=== PATIENT | male | born 1990 | race Caucasian/White ===

== ENCOUNTER 2016-06-25 10:08 | Emergency (ER) | payer BC ==
--- NOTE | 2016-06-25 10:25 | ED ---
General Adult HPI - General Chief complaint: Upper Respiratory Infection Stated complaint: CHEST CONGESTION, COUGHING, SORE THROAT Time Seen by Provider: 06/25/16 10:24 Source: patient, RN notes reviewed, old records reviewed Mode of arrival: ambulatory Limitations: no limitations - History of Present Illness Initial comments: This is a 26-year-old male here for evaluation. This patient presents for evaluation of sore throat cough congestion. Sick contacts include roommate. No significant travel history no significant medical history. Patient takes no medications, nonsmoker. Patient's symptoms are 2 days, but sore throat just started today. Patient states she was feeling weak at the end of last week and symptoms of carried into the weekend. No chest pain nausea vomiting shortness of breath or diarrhea. - Related Data Previous Rx's Medication Instructions Recorded Amoxicillin 500 mg PO Q8H #30 capsule 06/25/16 Benzonatate [Tessalon Perles] 100 mg PO TID PRN #30 cap 06/25/16 Cetirizine HCl/Pseudoephedrine 1 each PO DAILY #20 tab.er.12h 06/25/16 [Zyrtec-D Tablet] Allergies Allergy/AdvReac Type Severity Reaction Status Date / Time No Known Allergies Allergy Verified 06/25/16 10:22 Review of Systems ROS Statement: Those systems with pertinent positive or pertinent negative responses have been documented in the HPI. ROS Other: All systems not noted in ROS Statement are negative. Past Medical History Past Medical History: No Reported History History of Any Multi-Drug Resistant Organisms: None Reported Past Surgical History: Orthopedic Surgery Additional Past Surgical History / Comment(s): right hand Past Psychological History: No Psychological Hx Reported Smoking Status: Never smoker Past Alcohol Use History: Occasional Past Drug Use History: None Reported General Exam Limitations: no limitations General appearance: alert, in no apparent distress Head exam: Present: atraumatic, normocephalic, normal inspection Eye exam: Present: normal appearance, PERRL, EOMI. Absent: scleral icterus, conjunctival injection, periorbital swelling ENT exam: Present: other (Bilateral tonsillar erythema and edema and exudate) Neck exam: Present: normal inspection. Absent: tenderness, meningismus, lymphadenopathy Respiratory exam: Present: normal lung sounds bilaterally. Absent: respiratory distress, wheezes, rales, rhonchi, stridor Cardiovascular Exam: Present: regular rate, normal rhythm, normal heart sounds. Absent: systolic murmur, diastolic murmur, rubs, gallop, clicks GI/Abdominal exam: Present: soft, normal bowel sounds. Absent: distended, tenderness, guarding, rebound, rigid Extremities exam: Present: normal inspection, full ROM, normal capillary refill. Absent: tenderness, pedal edema, joint swelling, calf tenderness Back exam: Present: normal inspection Neurological exam: Present: alert, oriented X3, CN II-XII intact Psychiatric exam: Present: normal affect, normal mood Skin exam: Present: warm, dry, intact, normal color. Absent: rash Course Vital Signs 06/25/16 10:19 Temperature 98.1 F Pulse Rate 88 Respiratory 16 Rate Blood Pressure 122/79 O2 Sat by Pulse 98 Oximetry - Reevaluation(s) Reevaluation #1: 06/25/16 11:11 Patient no acute distress Medical Decision Making - Medical Decision Making 26 LDR for evaluation of cough congestion sore throat. Patient does have pharyngitis on exam, x-ray negative for pneumonia. Patient can be discharged home - Radiology Data Radiology results: report reviewed (Chest x-ray two-view Negative for acute disease), image reviewed Disposition Clinical Impression: Upper respiratory infection, Pharyngitis, Strep pharyngitis Disposition: HOME SELF-CARE Condition: Good Instructions: Upper Respiratory Infection (ED), Pharyngitis (ED) Referrals: None,Stated [Primary Care Provider] - 1-2 days
--- NOTE | 2016-06-25 11:33 | XR ---
EXAMINATION TYPE: XR chest 2V DATE OF EXAM: 06/25/2016 11:17 AM COMPARISON: NONE HISTORY: Cough and congestion. TECHNIQUE: Frontal and lateral views of the chest are obtained. FINDINGS: There is no focal air space opacity, pleural effusion, or pneumothorax seen. The cardiac silhouette size is within normal limits. The osseous structures are intact. IMPRESSION: No acute cardiopulmonary process.
[2016-06-25 11:39] VITALS: BP 119/80; PULSE 85; RESP 18; TEMP 97.3
== END 2016-06-25 11:38 | disposition home or self-care (01) ==
LOC: EC 10:08
DX: J02.0 Streptococcal pharyngitis (principal)
CPT/HCPCS: 71020; 99284

== ENCOUNTER 2016-07-27 11:36 | Emergency (ER) | payer BC ==
[2016-07-27] MEDS ORDERED: SODIUM CHLORIDE 0.9% 1,000 ML IV STA (13:04)
[2016-07-27] MEDS ORDERED: ONDANSETRON 4 MG/2 ML VIAL IVP STA (13:04)
[2016-07-27] MEDS ORDERED: ACETAMINOPHEN IV (For NPO) 1,000 MG in EMPTY BAG 1 BAG IVPB STA (13:13)
--- NOTE | 2016-07-27 13:14 | ED ---
Nausea/Vomiting/Diarrhea HPI - General Chief complaint: Nausea/Vomiting/Diarrhea Stated complaint: vomiting, diarrhea Time Seen by Provider: 07/27/16 13:04 Source: patient, RN notes reviewed Mode of arrival: ambulatory Limitations: no limitations - History of Present Illness Initial comments: 26-year-old male presents emergency Department chief complaint nausea vomiting diarrhea. Patient states symptoms started around midnight. Patient states they finally was able to keep some fluids down states he still very nauseated. Patient had several bouts of diarrhea but states he has not had any evidence of melena or hematochezia. Patient denies any hematemesis or coffee-ground emesis. Patient denies eating out anywhere, no travel. No sick contacts with similar symptoms. Patient states he does feel achy but denies any cold-like symptoms including cough, chest congestion, runny nose sore throat. Patient states he has no specific pain states he just generally does not feel well. - Related Data Previous Rx's Medication Instructions Recorded Ondansetron Odt [Zofran Odt] 4 mg PO Q8HR PRN #10 tab 07/27/16 Allergies Allergy/AdvReac Type Severity Reaction Status Date / Time No Known Allergies Allergy Verified 07/27/16 13:16 Review of Systems ROS Statement: Those systems with pertinent positive or pertinent negative responses have been documented in the HPI. ROS Other: All systems not noted in ROS Statement are negative. Past Medical History Past Medical History: No Reported History History of Any Multi-Drug Resistant Organisms: None Reported Past Surgical History: Orthopedic Surgery Additional Past Surgical History / Comment(s): right hand Past Psychological History: No Psychological Hx Reported Smoking Status: Never smoker Past Alcohol Use History: Occasional Past Drug Use History: None Reported General Exam Limitations: no limitations General appearance: alert, in no apparent distress Head exam: Present: atraumatic, normocephalic, normal inspection Eye exam: Present: normal appearance, PERRL, EOMI. Absent: scleral icterus, conjunctival injection, periorbital swelling ENT exam: Present: mucous membranes moist Neck exam: Present: normal inspection, full ROM. Absent: tenderness, meningismus, lymphadenopathy Respiratory exam: Present: normal lung sounds bilaterally. Absent: respiratory distress, wheezes, rales, rhonchi, stridor Cardiovascular Exam: Present: normal rhythm, tachycardia, normal heart sounds. Absent: systolic murmur, diastolic murmur, rubs, gallop, clicks GI/Abdominal exam: Present: soft, tenderness (Mild diffuse), normal bowel sounds. Absent: distended, guarding, rebound, rigid Neurological exam: Present: alert, oriented X3, CN II-XII intact Skin exam: Present: warm, dry, intact, normal color. Absent: rash Course Vital Signs 07/27/16 11:39 Temperature 99.7 F H Pulse Rate 121 H Respiratory 18 Rate Blood Pressure 110/57 O2 Sat by Pulse 97 Oximetry Medical Decision Making - Medical Decision Making 26-year-old male presented for nausea vomiting diarrhea. Patient's lab work within normals. Patient also has gastroenteritis. Patient states she does feel 100% better and states that he is hungry at this time. Patient will be discharged with Zofran. Return parameters were discussed. - Lab Data Result diagrams: 07/27/16 13:32 07/27/16 13:32 Lab Results 07/27/16 07/27/16 07/27/16 Range/Units 13:32 13:32 14:10 WBC 11.6 H (3.8-10.6) k/uL RBC 4.98 (4.30-5.90) m/uL Hgb 16.1 (13.0-17.5) gm/dL Hct 47.6 (39.0-53.0) % MCV 95.6 (80.0-100.0) fL MCH 32.3 (25.0-35.0) pg MCHC 33.8 (31.0-37.0) g/dL RDW 13.1 (11.5-15.5) % Plt Count 255 (150-450) k/uL Neutrophils % 90 % Lymphocytes % 4 % Monocytes % 4 % Eosinophils % 0 % Basophils % 0 % Neutrophils # 10.5 H (1.3-7.7) k/uL Lymphocytes # 0.5 L (1.0-4.8) k/uL Monocytes # 0.5 (0-1.0) k/uL Eosinophils # 0.0 (0-0.7) k/uL Basophils # 0.0 (0-0.2) k/uL Sodium 140 (137-145) mmol/L Potassium 4.1 (3.5-5.1) mmol/L Chloride 101 (98-107) mmol/L Carbon Dioxide 25 (22-30) mmol/L Anion Gap 14 mmol/L BUN 15 (9-20) mg/dL Creatinine 0.84 (0.66-1.25) mg/dL Est GFR (MDRD) Af Amer >60 (>60 ml/min/1.73 sqM) Est GFR (MDRD) Non-Af >60 (>60 ml/min/1.73 sqM) Glucose 113 H (74-99) mg/dL Calcium 9.1 (8.4-10.2) mg/dL Total Bilirubin 1.7 H (0.2-1.3) mg/dL AST 30 (17-59) U/L ALT 59 (21-72) U/L Alkaline Phosphatase 51 (38-126) U/L Total Protein 7.1 (6.3-8.2) g/dL Albumin 4.4 (3.5-5.0) g/dL Amylase <30 L (30-110) U/L Lipase 29 (23-300) U/L Urine Color Yellow Urine Appearance Clear (Clear) Urine pH 6.0 (5.0-8.0) Ur Specific [place] 1.030 (1.001-1.035) Urine Protein Trace H (Negative) Urine Glucose (UA) Negative (Negative) Urine Ketones Negative (Negative) Urine Blood Negative (Negative) Urine Nitrate Negative (Negative) Urine Bilirubin Negative (Negative) Urine Urobilinogen <2.0 (<2.0) mg/dL Ur Leukocyte Esterase Negative (Negative) Disposition Clinical Impression: Gastroenteritis Disposition: HOME SELF-CARE Condition: Stable Instructions: Gastroenteritis (ED) Additional Instructions: Please return to the Emergency Department if symptoms worsen or any other concerns. Prescriptions: Ondansetron Odt [Zofran Odt] 4 mg PO Q8HR PRN #10 tab PRN Reason: Nausea Time of Disposition: 15:01
[2016-07-27 13:59] LABS: Basophils % (A) 0 %; CH 33.6; CHCM 35.4; Eosinophils % (A) 0 %; HCT 47.6 % (39.0-53.0); HDW 2.75; HGB 16.1 gm/dL (13.0-17.5); Luc # (Auto) 0.08; Luc % (Auto) 1; Lymphocytes # (A) 0.5 k/uL (1.0-4.8); Lymphocytes % (A) 4 %; MCH 32.3 pg (25.0-35.0); MCHC 33.8 g/dL (31.0-37.0); MCV 95.6 fL (80.0-100.0); Mean Platelet Volume 8.3; Monocytes # (A) 0.5 k/uL (0-1.0); Monocytes % (A) 4 %; Neutrophils # (A) 10.5 k/uL (1.3-7.7); Neutrophils % (A) 90 %; RBC 4.98 m/uL (4.30-5.90); RDW 13.1 % (11.5-15.5); WBC 11.6 k/uL (3.8-10.6); WBC (Perox) 11.47
[2016-07-27 14:13] LABS: ALT 59 U/L (21-72); AST 30 U/L (17-59); Alkaline Phosphatase 51 U/L (38-126); Amylase <30 U/L (30-110); Anion Gap 14 mmol/L; Blood Urea Nitrogen 15 mg/dL (9-20); Calcium 9.1 mg/dL (8.4-10.2); Carbon Dioxide 25 mmol/L (22-30); Chloride 101 mmol/L (98-107); Glucose 113 mg/dL (74-99); Non-African American GFR(MDRD) >60 (>60 ml/min/1.73 sqM); Potassium 4.1 mmol/L (3.5-5.1); Sodium 140 mmol/L (137-145); Total Bilirubin 1.7 mg/dL (0.2-1.3); Total Protein 7.1 g/dL (6.3-8.2)
[2016-07-27 14:33] LABS: Appearance,Urine Clear (Clear); Bilirubin,Urine Negative (Negative); Glucose,Urine (UA) Negative (Negative); Ketones,Urine Negative (Negative); Leukocyte Esterase,Urine Negative (Negative); Nitrite,Urine Negative (Negative); Protein,Urine Trace (Negative); UA Billing (MACRO vs. MICRO) CHEM; Urobilinogen,Urine <2.0 mg/dL (<2.0)
[2016-07-27 15:29] VITALS: BP 143/61; PULSE 93; RESP 20; TEMP 98.7
== END 2016-07-27 15:28 | disposition home or self-care (01) ==
LOC: EC 11:36
DX: K52.9 Noninfective gastroenteritis and colitis, unspecified (principal)
CPT/HCPCS: 36415; 80053; 82150; 83690; 85025; 81003; 99284; 96365; 96375; J2405; J0131

== ENCOUNTER 2016-11-18 21:31 | Emergency (ER) | payer BC ==
[2016-11-18 21:48] VITALS: BP 130/74; PULSE 95; RESP 16; TEMP 97.8
--- NOTE | 2016-11-18 22:09 | ED ---
ENT HPI - General Chief complaint: ENT Stated complaint: dental pain Time Seen by Provider: 11/18/16 22:08 Source: patient, RN notes reviewed Mode of arrival: ambulatory Limitations: no limitations - History of Present Illness Initial comments: This is a pleasant 26-year-old male presents [facility] complaining of right -sided dental pain which been going on for the past few days. Patient is a cigarette smoker. Patient has a history of poor dentition. No shortness breath or chest pain. No fever or chills. MD complaint: tooth pain Onset/Timin -: days(s) Location: other (Patient has multiple dental caries on both sides. Mild gingivitis) Associated Symptoms: toothache, other (No shortness breath or chest pain. No fever or chills. No neck stiffness. No rashes or lesions) - Related Data Home Medications Medication Instructions Recorded Confirmed Multivitamins, Thera [Multivitamin 1 tab PO DAILY 11/18/16 11/18/16 (formulary)] Previous Rx's Medication Instructions Recorded HYDROcodone/APAP 5-325MG [[place] 5] 1 each PO Q4HR PRN #12 tab 11/18/16 Naproxen [Naprosyn] 500 mg PO Q12HR #24 tab 11/18/16 Penicillin V Potassium [Pen Vee K] 500 mg PO QID #40 tab 11/18/16 Allergies Allergy/AdvReac Type Severity Reaction Status Date / Time No Known Allergies Allergy Verified 11/18/16 21:54 Review of Systems ROS Statement: Those systems with pertinent positive or pertinent negative responses have been documented in the HPI. ROS Other: All systems not noted in ROS Statement are negative. Past Medical History Past Medical History: No Reported History History of Any Multi-Drug Resistant Organisms: None Reported Past Surgical History: Orthopedic Surgery Additional Past Surgical History / Comment(s): right hand Past Psychological History: No Psychological Hx Reported Smoking Status: Current every day smoker Past Alcohol Use History: Occasional Past Drug Use History: None Reported General Exam - General Exam Comments Initial Comments: Well-developed, well-nourished 26-year-old male in no distress Limitations: no limitations General appearance: alert, in no apparent distress Head exam: Present: atraumatic, normocephalic, normal inspection Eye exam: Present: normal appearance, PERRL, EOMI. Absent: scleral icterus, conjunctival injection, periorbital swelling ENT exam: Present: normal exam, mucous membranes moist, TM's normal bilaterally , normal external ear exam, other (Patient has extensive dental carry formation with gingivitis and mild periodontal erythema on the right. No evidence of drainable abscess.) Neck exam: Present: normal inspection. Absent: tenderness, meningismus, lymphadenopathy Respiratory exam: Present: normal lung sounds bilaterally. Absent: respiratory distress, wheezes, rales, rhonchi, stridor Cardiovascular Exam: Present: regular rate, normal rhythm, normal heart sounds. Absent: systolic murmur, diastolic murmur, rubs, gallop, clicks GI/Abdominal exam: Present: soft, normal bowel sounds. Absent: distended, tenderness, guarding, rebound, rigid Extremities exam: Present: normal inspection, full ROM, normal capillary refill. Absent: tenderness, pedal edema, joint swelling, calf tenderness Back exam: Present: normal inspection Neurological exam: Present: alert, oriented X3, CN II-XII intact Psychiatric exam: Present: normal affect, normal mood Skin exam: Present: warm, dry, intact, normal color. Absent: rash Course Vital Signs 11/18/16 21:46 Temperature 97.8 F Pulse Rate 95 Respiratory 16 Rate Blood Pressure 130/74 O2 Sat by Pulse 98 Oximetry Medical Decision Making - Medical Decision Making Dental carry formation and dental pain. No evidence of drainable abscess. No tonsillitis. No peritonsillar abscess - Differential Diagnosis Dental pain, dental caries, dental abscess Disposition Clinical Impression: Dental caries, Pain due to dental caries Disposition: HOME SELF-CARE Condition: Good Instructions: Dental Caries (ED) Additional Instructions: Follow-up with the [facility] dental clinic at [address] [place] [address]. The phone number is [phone] (existing clients), ( new clients). The first consultation is $50 which includes x-rays. Usually costs 30% less than private dentist for subsequent visits. Return to the ER at once if the symptoms worsen or problems or difficulties arise. Prescriptions: HYDROcodone/APAP 5-325MG [[place] 5] 1 each PO Q4HR PRN #12 tab PRN Reason: Pain Naproxen [Naprosyn] 500 mg PO Q12HR #24 tab Penicillin V Potassium [Pen Vee K] 500 mg PO QID #40 tab Referrals: Ervin Patterson MD [STAFF PHYSICIAN] - 1-2 days Time of Disposition: 22:45
== END 2016-11-18 22:54 | disposition home or self-care (01) ==
LOC: EC 21:31
DX: K02.9 Dental caries, unspecified (principal); F17.210 Nicotine dependence, cigarettes, uncomplicated; Z79.899 Other long term (current) drug therapy
CPT/HCPCS: 99282

== ENCOUNTER 2020-09-03 15:27 | Emergency (ER) | payer BC, OTHER ==
[2020-09-03 16:27] VITALS: BP 139/95; PULSE 81; RESP 18; TEMP 98.6
[2020-09-03] MEDS ORDERED: ACET/COD 300 MG/30 MG STARTER PACK 6 TAB BTL PO STA (17:00)
[2020-09-03] MEDS ORDERED: KETOROLAC 15 MG/ML 1 ML VIAL IM STA (17:00)
--- NOTE | 2020-09-03 17:05 | ED ---
ENT HPI - General Chief complaint: Dental/Oral Stated complaint: tooth pain/facial swelling Time Seen by Provider: 09/03/20 16:35 Source: patient Mode of arrival: ambulatory Limitations: no limitations - History of Present Illness Initial comments: Patient is a 30-year-old male presenting to the emergency Department with complaints of right-sided upper jaw swelling and pain over the past few days. Patient states he noticed tooth pain over the last 4-5 days and in the facial swelling that started today. He denies any fever or chills, no nausea or v omiting. He states he has had this issue in the past. He currently does not have insurance and does not have a dentist. He has been trying ibuprofen and Tylenol home without improvement in his pain. Patient has no further complaints at this time. Upon arrival to the ER, his vital signs are stable. - Related Data Home Medications Medication Instructions Recorded Confirmed Multivitamins, Thera [Multivitamin 1 tab PO DAILY 11/18/16 11/18/16 (formulary)] Previous Rx's Medication Instructions Recorded HYDROcodone/APAP 5-325MG [[place] 5] 1 each PO Q4HR PRN #12 tab 11/18/16 Naproxen [Naprosyn] 500 mg PO Q12HR #24 tab 11/18/16 Penicillin V Potassium [Pen Vee K] 500 mg PO QID #40 tab 11/18/16 Penicillin V Potassium [Pen Vee K] 500 mg PO QID 10 Days #40 tablet 09/03/20 Allergies Allergy/AdvReac Type Severity Reaction Status Date / Time No Known Allergies Allergy Verified 09/03/20 16:24 Review of Systems ROS Statement: Those systems with pertinent positive or pertinent negative responses have been documented in the HPI. ROS Other: All systems not noted in ROS Statement are negative. Past Medical History Past Medical History: No Reported History History of Any Multi-Drug Resistant Organisms: None Reported Past Surgical History: Orthopedic Surgery Additional Past Surgical History / Comment(s): right hand Past Psychological History: No Psychological Hx Reported Smoking Status: Current every day smoker Past Alcohol Use History: Rare Past Drug Use History: Marijuana General Exam - General Exam Comments Initial Comments: GENERAL: Patient is well-developed and well-nourished. Patient is nontoxic and in no acute distress. HEAD: Atraumatic, normocephalic. EYES: Pupils equal round and reactive to light, extraocular movements intact, sclera anicteric, conjunctiva are normal. Eyelids were unremarkable. ENT: TMs normal, nares patent, oropharynx clear without exudates. Moist mucous membranes. Patient has numerous decayed teeth in the right upper side, specifically teeth #1-4. There is no visible abscess seen but significant gumli ne erythema, and pain. He does have some very mild right facial swelling, does not go below the jawline. No erythema of the face. NECK: Normal range of motion, supple without lymphadenopathy or JVD. LUNGS: Unlabored respirations. Breath sounds clear to auscultation bilaterally and equal. No wheezes rales or rhonchi. HEART: Regular rate and rhythm without murmurs, rubs or gallops. ABDOMEN: Soft, nontender, normoactive bowel sounds. No guarding, no rebound. No masses appreciated. : Deferred MUSCULOSKELETAL: Normal extremities with adequate strength and normal range of motion, no pitting or edema. No clubbing or cyanosis. NEUROLOGICAL: Patient is alert and oriented x 3. Motor and sensory are also intact. Cranial nerves II through XII grossly intact. Symmetrical smile. Normal speech, normal gait. PSYCH: Normal mood, normal affect. SKIN: Warm, Dry, normal turgor, no rashes or lesions noted. Limitations: no limitations Course Vital Signs 09/03/20 16:24 Temperature 98.6 F Pulse Rate 81 Respiratory 18 Rate Blood Pressure 139/95 O2 Sat by Pulse 96 Oximetry Medical Decision Making - Medical Decision Making Patient is a 30-year-old male here for right upper dental pain for the past 4 or 5 days and facial swelling that just started today. No fevers, his vital signs are stable here. He has no visible dental abscess seen about many decayed teeth on the right upper side as well as erythema of the gumline. Patient will be given Toradol for pain today as well as sent home with Tylenol threes. I recommended he continue with ibuprofen as well. We'll also start him on penicillin. Patient follow-up with dentist, will give him referral to a free dental clinic. Patient is stable for discharge. Patient is in agreement with this plan of care. Return parameters were discussed with the patient and they verbalized understanding. Case discussed with Dr. Hernandez. Disposition Clinical Impression: Dental caries, Toothache, Dental abscess Disposition: HOME SELF-CARE Condition: Stable Instructions (If sedation given, give patient instructions): Dental Abscess (ED) Additional Instructions: Please return to the Emergency Department if symptoms worsen or any other concerns. Alternate ibuprofen with Tylenol threes for severe pain. Take antibiotics as prescribed. Please follow-up with dentist as discussed. Please follow up with the [facility] dental [facility]. [facility] [place] [address]. Phone number for new patients or [phone] for existing patients. Prescriptions: Penicillin V Potassium [Pen Vee K] 500 mg PO QID 10 Days #40 tablet Is patient prescribed a controlled substance at d/c from ED?: No Referrals: None,Stated [Primary Care Provider] - 1-2 days
== END 2020-09-03 17:12 | disposition home or self-care (01) ==
LOC: EC 15:27
DX: K04.7 Periapical abscess without sinus (principal); K02.9 Dental caries, unspecified; F17.200 Nicotine dependence, unspecified, uncomplicated
CPT/HCPCS: 99283; 96372; J1885